=== PATIENT | female | born 1955 | race Caucasian/White ===

== ENCOUNTER 2016-06-27 17:55 | Emergency (ER) | payer BC, OTHER ==
[2016-06-27] MEDS ORDERED: ONDANSETRON 4 MG/2 ML VIAL IVP ONE ×2 (18:16→21:01)
[2016-06-27] MEDS ORDERED: MORPHINE SULFATE 4 MG/1 ML IVP ONE (18:16)
[2016-06-27] MEDS ORDERED: Sodium Chloride 0.9% 1,000 ML PRIMARY IV ONE ×3 (18:16→20:00)
--- NOTE | 2016-06-27 18:22 | PDOC ---
Abdomen/Flank HPI - General Chief Complaint: Abdomen Pain Stated Complaint: SEVERE BILATERAL LOWER ABDOMINAL CRAMPING TODAY Date Seen by Provider: 06/27/16 Time Seen by Provider: 18:00 Source: POSITIVE: Patient, Spouse Exam Limitations: POSITIVE: No limitations Nurse's Notes Reviewed & Considered: Yes - History of Present Illness Initial Comments: Patient comes in today with severe abdominal pain. Patient was hospitalized last week with GI bleed and abdominal pain transfused 3 units of blood discharged to home. She comes in now with increased pain of her abdomen, swelling of her abdomen, nausea, and an increased weakness. She denies any fever or chills sweats. His pain or shortness of breath. Patient is anticoagulated for mechanical valve. Body Location Affected: REPORTS: Abdomen Timing: REPORTS: Abrupt Duration: <24 hours Severity: Severe Quality: REPORTS: "Pain", Sharpness, Stabbing, Throbbing Abdominal Pain Onset Location: REPORTS: RLQ, LLQ, Suprapubic Abdominal Pain Radiation: REPORTS: Periumbilical Context: REPORTS: None Modifying Factors: improves with: Nothing Associated Symptoms: REPORTS: Nausea, Swelling/mass in abdomen, Constipation Recent Care Received: REPORTS: Hospitalized - Patient Home Medications Home Medications: Home Medications Osteo Biflex 1 ea PO BID 11/04/09 Multivitamins W-Minerals/Lut [Centrum Silver Tablet] 1 each PO BID 02/07/12 Aspirin [Aspir 81] 81 mg ORAL QD tab 07/27/13 Ferrous Sulfate 1 tab PO BID #100 tab 11/20/14 Enoxaparin Inj [Lovenox Inj] 100 mg SUBCUT Q12H #7 syringe 06/24/16 Folic Acid [Folvite Tab] 1 mg PO DAILY 06/27/16 Magnesium 30 mg PO DAILY 06/27/16 Pyridoxine HCl [Vitamin B-6] 50 mg PO DAILY 06/27/16 Warfarin Sodium [Coumadin] 6 mg PO DAILY 06/27/16 - Patient Allergies Allergies/Adverse Reactions: Allergies Allergy/AdvReac Type Severity Reaction Status Date / Time phytonadione Allergy Intermediate local skin Verified 06/27/16 18:57 reaction at injection site gluten Allergy Unknown DIARRHEA Verified 06/27/16 18:57 Past Medical History - heen HEENT History: Cataracts Additional HEENT History: cataract right eye, wears glasses Cardiovascular History: Other (please comment) Additional Cardiovasular History: aortic valve replacement 1999, staph infection after that, open heart surgery because of infection pretreated with cefazolin, stroke 2002 and at that time, aspirin added to warfarin therapy. Respiratory History: Denies History Gastrointestinal History: Denies History Genitourinary History: Denies History Endocrine History: Denies History Musculoskeletal History: Arthritis Prosthesis or Implant: No Additional Musculoskeletal History: right knee, difficulty bending knee, loss of cartilage Neurological History: Other (please comment) Additional Neurological History: 2002 right leg weakness when she is very fatigued and weakness in right eye muscles occasionally Blood Disorders: Previous Bld Transfusions Additional Blood Disorders History: after heart cath and open heart surgery Psychiatric History: Denies History History of Sexually Transmitted Diseases: No Cancer History: Denies History History of MDRO: No History of Other Communicable Diseases: No Alcohol Use: Rarely Substance Use Type: None Previous Surgical History: Yes Type / Date of Surgery: appendectomy -age 11, aortic valve replacement-1999, femoral graft and open heart surgery 2000, hysterectomy 2002 Malignant Hyperthermia: No Significant Family History: Cancer, Diabetes Additional Family History: maternal grandmother breast cancer, aunt-lung cancer , maternal and paternal uncle diabetes, and aunt has diabetes ROS - Limitations ROS Limitations: No Limitations Constitution: REPORTS: Chills Cardiovascular: REPORTS: Denies Cardiac Symptoms Respiratory: REPORTS: Shortness Of Breath Neurological: REPORTS: Denies Neuro Symptoms Gastrointestinal: REPORTS: Abdominal Pain, Nausea, Other (Recent GI bleed.) Musculoskeletal: REPORTS: Denies MS Symptoms Genitourinary: REPORTS: Denies Symptoms Eyes: REPORTS: Denies Symptoms ENT: REPORTS: Denies Symptoms Skin: REPORTS: Denies Skin Symptoms Lympathic: REPORTS: Denies Lympathic Symptoms Immunologic: POSITIVE: Denies Symptoms Psychiatric: POSITIVE: Denies Psych Symptoms Abdominal/Flank Pain PE - General Appearance General Appearance: POSITIVE: Alert, Cooperative, No Evidence of Trauma, Anxious - HEENT HEENT: POSITIVE: Head Inspection Nml, Eyes Inspection Nml, Ears Inspection Nml, Nose Inspection Nml, PERRL, EOMI - Neck Neck: POSITIVE: Normal Inspection - Respiratory Respiratory: POSITIVE: No Respiratory Distress, Breath Sounds Normal, Chest Non- Tender - Cardiovascular Cardiovascular: POSITIVE: Heart Sounds Normal, Tachycardia Murmur: Diastolic: Grade 4 (plan systolic click, mechanical) - Chest Chest: POSITIVE: Non Tender - Abdomen Abdomen: Normal Bowel Sounds: (All Quadrants), Tenderness Noted: (All Quadrants) , Palpable Mass Noted: (LLQ), (RLQ), Distention: (LLQ), (RLQ), Guarding: (RLQ), (LLQ) - Skin Skin: POSITIVE: Intact, Warm, Dry, No Rash, Pallor - Extremities Extremity: Non-Tender: (All Extremities), Normal ROM: (All Extremities), Normal Inspection: (All Extremities) - Neurological Neurological: POSITIVE: Affect Apporpriate, Oriented X3 - Psychological Psychiatric: POSITIVE: Anxious Abdomen Progress - Results Reviewed by me Xrays/CTs/US Reviewed by me: Yes Discussed with Radiologist: Yes Lab Results Reviewed: Yes Lab Results:: Laboratory Results 06/27/16 06/27/16 06/27/16 Range/Units 18:34 18:35 20:35 WBC 7.15 6.60 (4.8-10.8) 10^3/uL RBC 3.02 L 2.66 L (4.20-5.40) 10^6/uL Hgb 8.6 L 7.5 L (12.0-16.0) g/dL Hct 28.1 L 24.8 L (37.0-47.0) % MCV 93.0 93.2 (81-99) FL MCH 28.5 28.2 (27-31) PG MCHC 30.6 L 30.2 L (33-37) g/dL RDW Std Deviation 51.4 H 51.8 H (39-50) fL RDW Coeff of Sy 16.6 H 16.5 H (11.5-14.5) % Plt Count 415 H 388 H (140-350) 10*3/uL MPV 8.4 8.3 (7.4-12.2) FL Immature Gran % (Auto) 0.4 (0-5) % Neut % (Auto) 80.1 H (50-80) % Lymph % (Auto) 8.8 L (10-50) % Cole % (Auto) 10.2 (5-15) % Eos % (Auto) 0.4 (0-8) % Baso % (Auto) 0.1 (0-1) % Immature Gran # (Auto) 0.03 10*3/UL Neut # (Auto) 5.72 10*3/UL Lymph # (Auto) 0.63 10*3/uL Cole # (Auto) 0.73 (0.3-0.8) 10*3/UL Eos # (Auto) 0.03 10*3/UL Baso # (Auto) 0.01 10*3/UL WBC Morphology Comment Normal morphology (NORM) Plt Morphology Comment Normal morphology (NORM) RBC Morph Comment Normal morphology (NORM) PT 22.0 H (9.7-11.4) secs INR 2.10 (0.00-5.90) N/A VBG pH 7.45 H (7.32-7.42) VBG pCO2 32 L (45-55) mmHg VBG HCO3 22 (22-26) mmol/L VBG Base Excess -2 (-2-2) MMOL/L Sodium 135 (135-145) meq/L Potassium 4.4 (3.8-5.2) meq/L Chloride 103 (98-112) meq/L Carbon Dioxide 26 (23-33) meq/L Anion Gap 6 (5-20) BUN 14 (7-22) mg/dL Creatinine 0.8 (0.50-1.20) mg/dL Estimated GFR > 60 (>60 ml/min/1.73m(2)) BUN/Creatinine Ratio 17.50 (6-20) Glucose 156 H (78-110) mg/dL Calculated Osmolality 283.0 (267-292) mOsm/kg Lactic Acid 1.9 (0.70-2.10) MMOL/L Calcium 8.6 L (8.7-10.7) mg/dL Magnesium 1.9 (1.6-2.4) mg/dL Total Bilirubin 0.7 (0.3-1.2) mg/dL AST 103 H (8-39) IU/L ALT 89 H D (9-52) IU/L Alkaline Phosphatase 60 (38-126) IU/L Total Protein 5.9 L (6.1-8.0) g/dL Albumin 3.4 L (3.5-4.8) g/dL Globulin 2.5 (2.50-4.10) g/dL Albumin/Globulin Ratio 1.30 (1.3-2.0) mg/g Blood Type A POSITIVE Antibody Screen Positive Antibody Identification Anti-E - Patient's Progress Pain Medication Addressed: POSITIVE: Yes Status: POSITIVE: Unchanged MDM / ED Course: Patient was brought into the emergency department examined, IV started, blood drawn and sent to lab for studies, CT scan of her abdomen and pelvis were obtained. Patient received pain medication IV, Zofran, normal saline 1-1/[address] finding showed bleeding into the extra abdominal and the rectus sheath of the left side. CBC showed hemoglobin low at 8.6 with a hematocrit of 41 platelets were elevated at 415 lactate was normal at 1.9 PTT showed blood gas of 7.45 with a PCO2 of 32 base excess is negative 2. INR is 2, Repeat CBC shows Hgb is now 7.5 ER course: Patient's blood pressure dropped to systolic of 65 and improved with 1-1/2 L of normal saline into the upper 90s. The patient is antibody E for blood and precludes transfusion with the blood i have available given that she has improved hemodynamically into the upper 90s systolic. I was able to contact [facility] [place] however the ICU is unavailable, I then contacted [facility] and talked with Dr. De La Torre who has graciously accepted this patient for transfer. Assessment: Rectus sheath bleed in an anticoagulated patient. - Consult Consult (If Yes, Name of Consulting MD & Time Called): Yes (Dr. De La Torre, [facility] [place]) Consulting MD will see pt:: POSITIVE: Recommended Transfer Counseled: POSITIVE: Patient, Family, RE: Lab Results, RE: Radiology Results, RE : DX Patient Care Time - Estimated PCT Patient Care Time (In Minutes): 75 Vital Signs - Recent Vital Signs Vital Signs: Vital Signs (Last 8 hours) Temp Pulse Resp BP Pulse Ox 06/27/16 17:55 97.5 F 101 H 17 94/53 99 - VS Reviewed Vital Signs Reviewed: Yes Discharge Clinical Impression: Rectus sheath hematoma Discharge Disposition: Transferred to Tertiary Care Facility Condition: Fair Follow Up With: TERESO KWON [Primary Care Provider] - Date Decision to Transfer to Another Facility: 06/27/16 Time Decision to Transfer to Another Facility: 19:30
[2016-06-27 18:38] LABS: BASOPHILS # (AUTO) 0.01 10*3/UL; BASOPHILS % (AUTO) 0.1 % (0-1); EOSINOPHILS % (AUTO) 0.4 % (0-8); HEMATOCRIT 28.1 % (37.0-47.0); HEMOGLOBIN 8.6 g/dL (12.0-16.0); IMM GRAN % (AUTO) 0.4 % (0-5); IMM GRAN# (AUTO) 0.03 10*3/UL; LYMPHOCYTES # (AUTO) 0.63 10*3/uL; LYMPHOCYTES % (AUTO) 8.8 % (10-50); MEAN CORPUSCULAR HEMOGLOBIN 28.5 PG (27-31); MEAN CORPUSCULAR HGB CONC 30.6 g/dL (33-37); MEAN PLATELET VOLUME 8.4 FL (7.4-12.2); MONOCYTES # (AUTO) 0.73 10*3/UL (0.3-0.8); MONOCYTES % (AUTO) 10.2 % (5-15); NEUTROPHILS # (AUTO) 5.72 10*3/UL; NEUTROPHILS % (AUTO) 80.1 % (50-80); RDW COEFFICIENT OF VARIATION 16.6 % (11.5-14.5); RED BLOOD COUNT 3.02 10^6/uL (4.20-5.40); WHITE BLOOD COUNT 7.15 10^3/uL (4.8-10.8)
[2016-06-27 18:40] LABS: PLATELET MORPHOLOGY COMMENT NORMAL MORPHOLOGY (NORM)
[2016-06-27 18:46] LABS: ASPARTATE AMINO TRANSFERASE 103 IU/L (8-39); BILIRUBIN,TOTAL 0.7 mg/dL (0.3-1.2); BLOOD UREA NITROGEN 14 mg/dL (7-22); CALCIUM 8.6 mg/dL (8.7-10.7); CHLORIDE 103 meq/L (98-112); CREATININE 0.8 mg/dL (0.50-1.20); EST GLOMERULAR FILTRATION > 60 (>60 ml/min/1.73m(2)); GLUCOSE 156 mg/dL (78-110); LACTATE 1.9 MMOL/L (0.70-2.10); MAGNESIUM 1.9 mg/dL (1.6-2.4); POTASSIUM 4.4 meq/L (3.8-5.2); SODIUM 135 meq/L (135-145); TOTAL PROTEIN 5.9 g/dL (6.1-8.0)
--- NOTE | 2016-06-27 19:49 | DI ---
HISTORY: Abdominal pain and decreased blood pressure. COMPARISON: 06/22/2016. TECHNIQUE: Multiple helically acquired CT images were obtained through the abdomen and pelvis follow ing the administration of 95 cc of Isovue 300. FINDINGS: Examination demonstrates multiple stable cystic areas within the left lobe of the liver. The lung bases are clear. There is a large extraperitoneal hemorrhage which appears to be arising from the left rectus abdomini s muscle. This displaces the urinary bladder posterior, which is decompressed by a Thompson catheter. The fluid collection measures 13 x 9 cm in cross-sectional diameter. There is subcutaneous fat stranding and air are consistent with subcutaneous injections. There is some fat stranding within the deep pelvis. Skeletal structures are unremarkable. Patient is status post cholecystectomy. The spleen, pancreas, adrenals and kidneys are unremarkable. A few peripheral vascular calcifications are seen. There are stable degenerative changes of the abdomen and pelvis. There is stable levoscoliosis of the lumbar spine. IMPRESSION: 1. New large 13 x 9 cm extraperitoneal hematoma displacing the urinary bladder. This appears to be ar ising from the left rectus abdominous muscle. This is most commonly seen in an anticoagulated patien t with a spontaneous hemorrhage. Correlate clinically.
[2016-06-27] MEDS ORDERED: MORPHINE SULFATE 2 MG/1 ML IVP ONE ×2 (19:58→20:15)
[2016-06-27] MEDS ORDERED: MORPHINE SULFATE 2 MG/1 ML ONE (20:04)
[2016-06-27 20:47] LABS: HEMATOCRIT 24.8 % (37.0-47.0); HEMOGLOBIN 7.5 g/dL (12.0-16.0); MEAN CORPUSCULAR HEMOGLOBIN 28.2 PG (27-31); MEAN CORPUSCULAR HGB CONC 30.2 g/dL (33-37); MEAN PLATELET VOLUME 8.3 FL (7.4-12.2); RDW COEFFICIENT OF VARIATION 16.5 % (11.5-14.5); RED BLOOD COUNT 2.66 10^6/uL (4.20-5.40); WHITE BLOOD COUNT 6.6 10^3/uL (4.8-10.8)
[2016-06-28 02:46] VITALS: RESP 20; TEMP 98.1
== END 2016-06-27 21:20 ==
LOC: ER 17:55
DX: S36.62XA Contusion of rectum, initial encounter (principal); R10.31 Right lower quadrant pain; R11.0 Nausea; R53.1 Weakness; R06.02 Shortness of breath; Z95.4 Presence of other heart-valve replacement; Z79.01 Long term (current) use of anticoagulants
CPT/HCPCS: 36415; 74177; 80053; 82803; 83605; 83735; 85025; 85027; 85610; 86850; 86870; 86900; 86901; 86922; 96361; 96374; 96375; 96376; 99283; J2270; J2405; J7030

== ENCOUNTER → 2016-07-12 | Outpatient (CLI) | payer BC, OTHER ==
[2016-07-12 15:52] LABS: BASOPHILS # (AUTO) 0.03 10*3/UL; BASOPHILS % (AUTO) 0.5 % (0-1); HEMATOCRIT 33.4 % (37.0-47.0); HEMOGLOBIN 10.3 g/dL (12.0-16.0); IMM GRAN % (AUTO) 0.7 % (0-5); IMM GRAN# (AUTO) 0.04 10*3/UL; LYMPHOCYTES # (AUTO) 0.72 10*3/uL; MEAN CORPUSCULAR HEMOGLOBIN 29.5 PG (27-31); MEAN CORPUSCULAR HGB CONC 30.8 g/dL (33-37); MEAN PLATELET VOLUME 8.3 FL (7.4-12.2); MONOCYTES # (AUTO) 0.75 10*3/UL (0.3-0.8); MONOCYTES % (AUTO) 12.5 % (5-15); NEUTROPHILS # (AUTO) 4.35 10*3/UL; NEUTROPHILS % (AUTO) 72.3 % (50-80); RDW COEFFICIENT OF VARIATION 15.9 % (11.5-14.5); RED BLOOD COUNT 3.49 10^6/uL (4.20-5.40); WHITE BLOOD COUNT 6.01 10^3/uL (4.8-10.8)
[2016-07-12 16:00] LABS: PLATELET MORPHOLOGY COMMENT NORMAL MORPHOLOGY (NORM)
[2016-07-12 16:26] LABS: PROTHROMBIN TIME 28.8 secs (9.7-11.4)
== END ==
LOC: MOB LAB 15:26
DX: I35.0 Nonrheumatic aortic (valve) stenosis (principal); D62 Acute posthemorrhagic anemia
CPT/HCPCS: 36415; 85025; 85610

== ENCOUNTER → 2016-07-15 | Outpatient (CLI) | payer BC, OTHER ==
[2016-07-15 09:09] LABS: BASOPHILS # (AUTO) 0.03 10*3/UL; BASOPHILS % (AUTO) 0.6 % (0-1); EOSINOPHILS % (AUTO) 1.4 % (0-8); HEMATOCRIT 34.6 % (37.0-47.0); HEMOGLOBIN 10.5 g/dL (12.0-16.0); IMM GRAN % (AUTO) 0.2 % (0-5); IMM GRAN# (AUTO) 0.01 10*3/UL; LYMPHOCYTES # (AUTO) 0.58 10*3/uL; MEAN CORPUSCULAR HEMOGLOBIN 29.1 PG (27-31); MEAN CORPUSCULAR HGB CONC 30.3 g/dL (33-37); MEAN PLATELET VOLUME 7.9 FL (7.4-12.2); MONOCYTES # (AUTO) 0.68 10*3/UL (0.3-0.8); NEUTROPHILS # (AUTO) 3.48 10*3/UL; NEUTROPHILS % (AUTO) 71.8 % (50-80); RDW COEFFICIENT OF VARIATION 15.7 % (11.5-14.5); RED BLOOD COUNT 3.61 10^6/uL (4.20-5.40); WHITE BLOOD COUNT 4.85 10^3/uL (4.8-10.8)
[2016-07-15 09:12] LABS: PLATELET MORPHOLOGY COMMENT NORMAL MORPHOLOGY (NORM)
[2016-07-15 09:19] LABS: PROTHROMBIN TIME 34.1 secs (9.7-11.4)
[2016-07-15 09:28] LABS: BUN/CREATININE RATIO 13.63 (6-20); CALCIUM 9.8 mg/dL (8.7-10.7); CREATININE 1.1 mg/dL (0.50-1.20); POTASSIUM 4.5 meq/L (3.8-5.2)
== END ==
LOC: LAB 08:50
DX: I35.0 Nonrheumatic aortic (valve) stenosis (principal); D62 Acute posthemorrhagic anemia; N17.9 Acute kidney failure, unspecified
CPT/HCPCS: 36415; 80048; 85025; 85610

== ENCOUNTER → 2016-07-22 | Outpatient (CLI) | payer BC, OTHER ==
[2016-07-22 09:00] LABS: BASOPHILS # (AUTO) 0.02 10*3/UL; BASOPHILS % (AUTO) 0.5 % (0-1); EOSINOPHILS % (AUTO) 2.5 % (0-8); HEMATOCRIT 34.8 % (37.0-47.0); HEMOGLOBIN 10.7 g/dL (12.0-16.0); IMM GRAN % (AUTO) 0.2 % (0-5); IMM GRAN# (AUTO) 0.01 10*3/UL; LYMPHOCYTES # (AUTO) 0.68 10*3/uL; LYMPHOCYTES % (AUTO) 15.6 % (10-50); MEAN CORPUSCULAR HEMOGLOBIN 29.3 PG (27-31); MEAN CORPUSCULAR HGB CONC 30.7 g/dL (33-37); MEAN PLATELET VOLUME 8.4 FL (7.4-12.2); MONOCYTES % (AUTO) 13.8 % (5-15); NEUTROPHILS # (AUTO) 2.93 10*3/UL; NEUTROPHILS % (AUTO) 67.4 % (50-80); RDW COEFFICIENT OF VARIATION 15.2 % (11.5-14.5); RED BLOOD COUNT 3.65 10^6/uL (4.20-5.40); WHITE BLOOD COUNT 4.35 10^3/uL (4.8-10.8)
[2016-07-22 09:01] LABS: PLATELET MORPHOLOGY COMMENT NORMAL MORPHOLOGY (NORM)
[2016-07-22 09:28] LABS: PROTHROMBIN TIME 39.9 secs (9.7-11.4)
[2016-07-22 10:32] LABS: BILIRUBIN,URINE MODERATE (NEG); CLARITY,URINE CLOUDY (CLEAR); GLUCOSE, URINE (UA) NEGATIVE (NEG); LEUKOCYTE ESTERASE ,URINE NEGATIVE (NEG); NITRATE,URINE NEGATIVE (NEG); OCCULT BLOOD,URINE LARGE (NEG); PH,URINE 7.5 (5.0-8.5); PROTEIN,URINE >300 mg/dl (NEG)
[2016-07-22 10:41] LABS: URINE SAMPLE TYPE VOIDED SPECIMEN
[2016-07-22 10:42] LABS: BACTERIA,URINE FEW; RBC,URINE >100 /hpf; SQUAMOUS EPITHELIAL CELL,UR FEW; WBC,URINE 60-80
== END ==
LOC: MOB LAB 08:38
DX: R31.0 Gross hematuria (principal); R30.0 Dysuria; Z79.01 Long term (current) use of anticoagulants
CPT/HCPCS: 81001; 85025; 85610; 87077; 87088; 87186

== ENCOUNTER → 2016-07-26 | Outpatient (CLI) | payer BC, OTHER ==
[2016-07-26 11:35] LABS: BLOOD UREA NITROGEN 12 mg/dL (7-22); BUN/CREATININE RATIO 13.33 (6-20); CALCIUM 9.3 mg/dL (8.7-10.7); CHLORIDE 101 meq/L (98-112); CREATININE 0.9 mg/dL (0.50-1.20); EST GLOMERULAR FILTRATION > 60 (>60 ml/min/1.73m(2)); GLUCOSE 90 mg/dL (78-110); POTASSIUM 4.2 meq/L (3.8-5.2); SODIUM 139 meq/L (135-145)
[2016-07-26 11:36] LABS: PROTHROMBIN TIME 26.7 secs (9.7-11.4)
== END ==
LOC: LAB 10:56
DX: N17.9 Acute kidney failure, unspecified (principal); Z95.2 Presence of prosthetic heart valve
CPT/HCPCS: 36415; 80048; 85610

== ENCOUNTER → 2016-08-09 | Outpatient (CLI) | payer BC, OTHER ==
[2016-08-09 09:16] LABS: PROTHROMBIN TIME 27.1 secs (9.7-11.4)
== END ==
LOC: LAB 08:33
DX: Z95.2 Presence of prosthetic heart valve (principal); Z79.01 Long term (current) use of anticoagulants
CPT/HCPCS: 36415; 85610

== ENCOUNTER → 2016-08-13 | Outpatient (CLI) | payer BC, OTHER ==
[2016-08-13 08:22] LABS: PROTHROMBIN TIME 40.9 secs (9.7-11.4)
== END ==
LOC: LAB 08:01
DX: Z95.2 Presence of prosthetic heart valve (principal); Z79.01 Long term (current) use of anticoagulants
CPT/HCPCS: 36415; 85610

== ENCOUNTER → 2016-08-20 | Outpatient (CLI) | payer BC, OTHER ==
[2016-08-20 13:48] LABS: PROTHROMBIN TIME 20.2 secs (9.7-11.4)
== END ==
LOC: LAB 13:07
DX: Z95.2 Presence of prosthetic heart valve (principal); Z79.01 Long term (current) use of anticoagulants
CPT/HCPCS: 36415; 85610

== ENCOUNTER → 2016-08-27 | Outpatient (CLI) | payer BC, OTHER ==
[2016-08-27 13:12] LABS: PROTHROMBIN TIME 40.3 secs (9.7-11.4)
== END ==
LOC: LAB 12:41
DX: R31.0 Gross hematuria (principal); Z79.01 Long term (current) use of anticoagulants; Z95.2 Presence of prosthetic heart valve
CPT/HCPCS: 36415; 85610

== ENCOUNTER → 2016-09-03 | Outpatient (CLI) | payer BC, OTHER ==
[2016-09-03 09:43] LABS: PROTHROMBIN TIME 24.4 secs (9.7-11.4)
== END ==
LOC: LAB 09:09
DX: Z95.2 Presence of prosthetic heart valve (principal); Z79.01 Long term (current) use of anticoagulants
CPT/HCPCS: 36415; 85610

== ENCOUNTER → 2016-09-13 | Outpatient (CLI) | payer BC, OTHER | LOC: LAB 15:22 | DX: D62 Acute posthemorrhagic anemia (principal); Z95.2 Presence of prosthetic heart valve; Z79.01 Long term (current) use of anticoagulants | CPT/HCPCS: 36415; 85018; 85610 ==

== ENCOUNTER → 2016-09-27 | Outpatient (CLI) | payer BC, OTHER ==
[2016-09-27 11:55] LABS: BLOOD UREA NITROGEN 14 mg/dL (7-22); CALCIUM 9.4 mg/dL (8.7-10.7); EST GLOMERULAR FILTRATION > 60 (>60 ml/min/1.73m(2))
[2016-09-27 12:02] LABS: BASOPHILS # (AUTO) 0.02 10*3/UL; BASOPHILS % (AUTO) 0.4 % (0-1); EOSINOPHILS # (AUTO) 0.14 10*3/UL; EOSINOPHILS % (AUTO) 2.7 % (0-8); HEMATOCRIT 41.4 % (37.0-47.0); HEMOGLOBIN 13.2 g/dL (12.0-16.0); LYMPHOCYTES # (AUTO) 0.97 10*3/uL; MEAN CORPUSCULAR HEMOGLOBIN 29.1 PG (27-31); MEAN CORPUSCULAR HGB CONC 31.9 g/dL (33-37); MEAN CORPUSCULAR VOLUME 91.2 FL (81-99); MEAN PLATELET VOLUME 8.6 FL (7.4-12.2); MONOCYTES # (AUTO) 0.61 10*3/UL (0.3-0.8); MONOCYTES % (AUTO) 11.8 % (5-15); NEUTROPHILS # (AUTO) 3.41 10*3/UL; NEUTROPHILS % (AUTO) 66.1 % (50-80); RED BLOOD COUNT 4.54 10^6/uL (4.20-5.40)
[2016-09-27 12:21] LABS: PLATELET MORPHOLOGY COMMENT NORMAL MORPHOLOGY (NORM); RBC MORPHOLOGY COMMENT NORMAL MORPHOLOGY (NORM); WBC MORPHOLOGY COMMENT NORMAL MORPHOLOGY (NORM)
== END ==
LOC: LAB 11:16
DX: D62 Acute posthemorrhagic anemia (principal); I35.0 Nonrheumatic aortic (valve) stenosis; N17.9 Acute kidney failure, unspecified; Z95.2 Presence of prosthetic heart valve
CPT/HCPCS: 36415; 80048; 85025; 85610

== ENCOUNTER → 2016-10-11 | Outpatient (CLI) | payer BC, OTHER | LOC: LAB 10:32 | DX: Z95.2 Presence of prosthetic heart valve (principal); Z79.01 Long term (current) use of anticoagulants | CPT/HCPCS: 36415; 85610 ==

== ENCOUNTER → 2016-10-25 | Outpatient (CLI) | payer BC, OTHER | LOC: LAB 10:03 | DX: Z95.2 Presence of prosthetic heart valve (principal); Z79.01 Long term (current) use of anticoagulants | CPT/HCPCS: 36415; 85610 ==

== ENCOUNTER → 2016-11-01 | Outpatient (CLI) | payer BC, OTHER | LOC: LAB 10:08 | DX: Z95.2 Presence of prosthetic heart valve (principal); Z79.01 Long term (current) use of anticoagulants | CPT/HCPCS: 36415; 85610 ==

== ENCOUNTER → 2016-11-15 | Outpatient (CLI) | payer BC, OTHER | LOC: LAB 10:31 | DX: Z95.2 Presence of prosthetic heart valve (principal); Z79.01 Long term (current) use of anticoagulants | CPT/HCPCS: 36415; 85610 ==

== ENCOUNTER → 2016-11-23 | Outpatient (CLI) | payer BC, OTHER | LOC: LAB 07:47 | DX: Z95.2 Presence of prosthetic heart valve (principal); Z79.01 Long term (current) use of anticoagulants | CPT/HCPCS: 36415; 85610 ==

== ENCOUNTER → 2016-11-23 | Outpatient (CLI) | payer BC, OTHER ==
--- NOTE | 2016-11-23 09:23 | DI ---
HISTORY: Gross hematuria. COMPARISON: None available. TECHNIQUE: Sonographic images were obtained through the renal retroperitoneum and submitted for inte rpretation. FINDINGS: No hydronephrosis. Mild renal cortical thinning. No renal stones identified. The ureter al jets were not visualized in the bladder. There is a nonspecific hypoechoic region superior to the urinary bladder. IMPRESSION: 1. No hydronephrosis. Mild renal cortical thinning. 2. Nonspecific hypoechoic region superior to the urinary bladder. CT with/without iv contrast can be obtained for further evaluation. NOTE: The interpreting Radiologist was not present at the time of ultrasound interrogation.
== END ==
LOC: US 07:43
PROVIDERS: ATTEND Urology
DX: R31.0 Gross hematuria (principal)
CPT/HCPCS: 76770

== ENCOUNTER → 2016-12-13 | Outpatient (CLI) | payer BC, OTHER ==
[2016-12-13 08:19] LABS: BLOOD UREA NITROGEN 22 mg/dL (7-22); BUN/CREATININE RATIO 24.44 (6-20); CALCIUM 9.2 mg/dL (8.7-10.7); EST GLOMERULAR FILTRATION > 60 (>60 ml/min/1.73m(2))
[2016-12-13 08:53] LABS: VITAMIN D 25-HYDROXY 51.1 NG/ML (30-100)
== END ==
LOC: LAB 07:47
DX: E55.9 Vitamin D deficiency, unspecified (principal); M81.0 Age-related osteoporosis without current pathological fracture; R73.9 Hyperglycemia, unspecified; S37.009S Unspecified injury of unspecified kidney, sequela; Z95.2 Presence of prosthetic heart valve; Z79.01 Long term (current) use of anticoagulants
CPT/HCPCS: 36415; 80048; 82306; 84443; 85610

== ENCOUNTER → 2016-12-24 | Outpatient (CLI) | payer BC, OTHER | LOC: LAB 15:56 | DX: Z95.2 Presence of prosthetic heart valve (principal); Z79.01 Long term (current) use of anticoagulants | CPT/HCPCS: 36415; 85610 ==

== ENCOUNTER → 2017-01-17 | Outpatient (CLI) | payer OTHER | LOC: LAB 12:18 | DX: Z95.2 Presence of prosthetic heart valve (principal); Z79.01 Long term (current) use of anticoagulants | CPT/HCPCS: 36415; 85610 ==

== ENCOUNTER → 2017-02-07 | Outpatient (CLI) | payer OTHER | LOC: LAB 10:46 | DX: Z95.2 Presence of prosthetic heart valve (principal); Z79.01 Long term (current) use of anticoagulants | CPT/HCPCS: 36415; 85610 ==

== ENCOUNTER 2018-09-12 09:32 | Observation (INO) ==
[2018-09-12] MEDS ORDERED: Sodium Chloride 0.9% 1,000 ML PRIMARY IV ONE (09:51)
[2018-09-12] MEDS ORDERED: ONDANSETRON 4 MG/2 ML VIAL IVP ONE (09:51)
--- NOTE | 2018-09-12 10:05 | PDOC ---
General Adult HPI - General Chief Complaint: General Medical Stated Complaint: NAUSEA/VOMITING/COUGHING Date Seen by Provider: 09/12/18 Time Seen by Provider: 09:40 Source: POSITIVE: Patient Exam Limitations: POSITIVE: No limitations Nurse's Notes Reviewed & Considered: Yes - History of Present Illness Initial Comment: The patient is a 62-year-old female who returns to the emergency department with complaints of continued dry heaves and vomiting. She now has worsening cough as well. The patient was seen here in the emergency department on Tuesday morning with complaints primarily of nausea and vomiting. She was significantly dehydrated at that time and received a couple liters of fluid and anti-medics after which she was feeling better. Her blood work at that essentially unremarkable with the exception of her INR being elevated at 5.2. She had been started on doxycycline several days prior to that for a sinus infection. She was discharged home and her antibiotic was changed to Keflex to hopefully decrease the interaction with the warfarin. She was also discharged home with [facility]. She states that yesterday she was feeling better and she actually went outside for a little bit. She was able to eat some yesterday and had no vomiting. Last night however she had increased nausea and vomiting primarily after coughing. She feels like there is mucus in the back of her throat that is gagging her. She states that she feels like she is getting dehydrated again this morning. She continues to have a low-grade headache. She denies nausea or weakness in her arms or legs. She denies any chest pain or abdominal pain. She does report some increase shortness of breath. She did try taking an albuterol inhaler at home which seemed to help a little bit. She reports that female over the weekend she was having diarrhea however over the past couple of days she has not had any further diarrhea. Her stools have been loose and yellow in color. She has not taken any Coumadin for the past 4 days, a secondary to vomiting and then she held her Coumadin because of the elevation. She checked her INR on her home machine this morning and it registered greater than 8. Have you received a tetanus shot in the past 10 years?: Yes - Patient Home Medications Home Medications: Home Medications Osteo Biflex 1 ea PO BID 11/04/09 Multivitamins W-Minerals/Lut [Centrum Silver Tablet] 1 ea PO BID 02/07/12 Folic Acid [Folvite Tab] 1 mg PO DAILY 06/27/16 Pyridoxine HCl [Vitamin B-6] 1 tab PO QD #30 06/27/16 aluminum hydrox-magnesium carb 95 mg-358 mg/15 mL oral suspension 15 ml PO TID- QID PRN 06/13/17 ferrous gluconate 324 mg (38 mg iron) tablet 324 mg PO BID #180 tab 06/13/17 loperamide 2 mg capsule 2 mg PO Q2-4H PRN 06/13/17 potassium citrate ER 10 mEq (1,080 mg) tablet,extended release 10 meq PO QDAY PRN #90 tab 06/13/17 ranitidine 150 mg tablet 150 mg PO BID tab 03/31/18 clobetasol 0.05 % topical ointment 1 applic TOPICAL QHS #15 g 04/12/18 calcium carbonate-vitamin D3 600 mg (1,500 mg)-400 unit capsule 600 mg PO BID cap 07/18/18 lactobacillus combination no.8 3 billion cell capsule 3,000 mmu cells PO BID cap 07/18/18 magnesium 30 mg tablet 400 mg PO DAILY PRN tab 07/18/18 estradiol 10 mcg vaginal tablet 10 mcg VAGINAL 2XW #24 tab 07/20/18 furosemide 20 mg tablet 20 mg PO QDAY PRN #90 tab 07/20/18 lisinopril 5 mg tablet 5 mg PO QDAY #90 tab 07/20/18 oxybutynin chloride ER 10 mg tablet,extended release 24 hr 10 mg PO QDAY #90 tab 07/20/18 sertraline 100 mg tablet 100 mg PO QDAY #90 tab 07/20/18 warfarin 4 mg tablet 6 mg PO see directions #135 tab 07/20/18 fluticasone 50 mcg/actuation nasal spray,suspension See Rx Instructions .ROUTE .COMPLEX #16 gram 08/06/18 codeine 10 mg-guaifenesin 100 mg/5 mL oral liquid 10 ml PO Q4-6H PRN #500 ml 09/07/18 doxycycline hyclate 100 mg tablet 100 mg PO BID #14 tab 09/07/18 Cephalexin [Keflex] 500 mg PO TID #21 cap 09/10/18 Ondansetron Odt [Zofran Odt] 8 mg PO Q6H PRN #10 tab.rapdis 09/10/18 - Patient Allergies Allergies/Adverse Reactions: Allergies Allergy/AdvReac Type Severity Reaction Status Date / Time phytonadione (vitamin K1) Allergy Intermediate local skin Verified 09/12/18 10:49 reaction at injection site gluten Allergy Unknown DIARRHEA Verified 09/12/18 10:49 Past Medical History - heen HEENT History: Cataracts Additional HEENT History: cataract right eye, wears glasses Cardiovascular History: Other (please comment) Additional Cardiovasular History: aortic valve replacement 1999, staph infection after that, open heart surgery because of infection pretreated with cefazolin, stroke 2002 and at that time, aspirin added to warfarin therapy. Respiratory History: Denies History Gastrointestinal History: Denies History Genitourinary History: Denies History Endocrine History: Denies History Musculoskeletal History: Arthritis Prosthesis or Implant: No Additional Musculoskeletal History: right knee, difficulty bending knee, loss of cartilage Neurological History: Other (please comment) Additional Neurological History: 2002 right leg weakness when she is very fatigued and weakness in right eye muscles occasionally Blood Disorders: Previous Bld Transfusions Additional Blood Disorders History: after heart cath and open heart surgery Psychiatric History: Denies History History of Sexually Transmitted Diseases: No Cancer History: Denies History In Past Year Been Physically Harmed or Verbally Threatened: No History of MDRO: No Other Type of MDRO: STAPH IN CHEST WOUND AND HEART CATH INTRODUCTION SITE (GROIN) History of Other Communicable Diseases: No Tobacco Use: Former Smoker Alcohol Use: Rarely In the Past 12 Months, Have Used or Abuse Any Substance: None Previous Surgical History: Yes Type / Date of Surgery: appendectomy -age 11, aortic valve replacement-1999, femoral graft and open heart surgery 2000, hysterectomy 2002 Malignant Hyperthermia: No Significant Family History: Cancer, Diabetes Additional Family History: maternal grandmother breast cancer, aunt-lung cancer, maternal and paternal uncle diabetes, and aunt has diabetes Past Medical History Reviewed: Reviewed - No Changes ROS - Limitations ROS Limitations: No Limitations Constitution: REPORTS: Chills. DENIES: Fever Cardiovascular: DENIES: Chest Pain, Heart Palpitations, Edema Respiratory: REPORTS: Cough Non Productive, Cough Productive, Shortness Of Breath. DENIES: Hurts To Breathe Neurological: REPORTS: Headache, Dizziness. DENIES: Confusion, Numbness, Seizure Activity, Weakness Gastrointestinal: REPORTS: Nausea, Vomitting (The vomiting at this point appears to be primarily posttussive). DENIES: Abdominal Pain Endocrine: REPORTS: Fatigue Musculoskeletal: REPORTS: Denies MS Symptoms Genitourinary: REPORTS: Denies Symptoms Eyes: REPORTS: Vision Changes (Some blurred vision) ENT: REPORTS: Congestion, Nasal Drainage, Sore Throat Skin: DENIES: Rash General Adult Exam - General Appearance General Appearance: POSITIVE: Alert, Cooperative, No Acute Distress - HEENT HEENT: POSITIVE: Head Inspection Nml, Eyes Inspection Nml, Ears Inspection Nml, Nose Inspection Nml, Pharynx Inspect. Nml, PERRL, EOMI, Dry Mucous Membranes - Neck Neck: POSITIVE: Normal Inspection. NEGATIVE: Lymphadenopathy - Respiratory Respiratory: POSITIVE: No Respiratory Distress, Breath Sounds Normal - Cardiovascular Cardiovascular: POSITIVE: Regular Rate & Rhythm, No Murmur Peripheral Pulses: Dorsalis-pedis (R): 2+, Dorsalis-pedis (L): 2+ - Abdomen Abdomen: Soft: (All Quadrants), Denies Tenderness: (All Quadrants), No Distention: (All Quadrants) - Back Back: POSITIVE: Normal Inspection - Skin Skin: POSITIVE: Normal Color, No Rash - Extremities Extremity: Normal ROM: (All Extremities), Normal Inspection: (All Extremities) - Neurological / Psychological Neurological: POSITIVE: Oriented X3, mgmt consultant Normal As Tested, Motor Normal, Sensation Normal General Adult Progress - Results Reviewed by me Xrays/CTs/US Reviewed by me: Yes Discussed with Radiologist: Yes Radiology Findings: Chest x-ray shows no acute infiltrate or any other acute findings per radiologist. Head CT shows no acute intracranial pathology per radiologist. Lab Results Reviewed by Me: Yes Lab Results:: Laboratory Results 09/12/18 09/12/18 09/12/18 09:55 09:55 09:55 WBC 4.03 L RBC 4.85 Hgb 14.6 Hct 43.6 MCV 89.9 MCH 30.1 MCHC 33.5 RDW Std Deviation 43.9 RDW Coeff of Sy 13.7 Plt Count 244 MPV 8.8 Immature Gran % (Auto) 0.2 Neut % (Auto) 64.1 Lymph % (Auto) 21.1 [place] % (Auto) 13.9 Eos % (Auto) 0.5 Baso % (Auto) 0.2 Immature Gran # (Auto) 0.01 Neut # (Auto) 2.58 Lymph # (Auto) 0.85 [place] # (Auto) 0.56 Eos # (Auto) 0.02 Baso # (Auto) 0.01 WBC Morphology Comment Normal morphology Plt Morphology Comment Normal morphology RBC Morph Comment Normal morphology PT 87.0 H INR 10.12 H* D VBG pH VBG pCO2 VBG HCO3 VBG Base Excess Sodium 137 Potassium 4.0 Chloride 102 Carbon Dioxide 26 Anion Gap 9 BUN 11 Creatinine 0.8 Estimated GFR > 60 BUN/Creatinine Ratio 13.75 Glucose 105 Calculated Osmolality 282.0 Lactic Acid Calcium 9.8 Magnesium 1.6 Total Bilirubin 0.8 D AST 124 H ALT 94 H D Alkaline Phosphatase 86 Troponin I C-Reactive Protein 0.7 NT-Pro-B Natriuret Pep 542 H Total Protein 7.9 Albumin 4.8 Globulin 3.1 Albumin/Globulin Ratio 1.50 09/12/18 09/12/18 09/12/18 09:55 09:55 10:05 WBC RBC Hgb Hct MCV MCH MCHC RDW Std Deviation RDW Coeff of Sy Plt Count MPV Immature Gran % (Auto) Neut % (Auto) Lymph % (Auto) [place] % (Auto) Eos % (Auto) Baso % (Auto) Immature Gran # (Auto) Neut # (Auto) Lymph # (Auto) [place] # (Auto) Eos # (Auto) Baso # (Auto) WBC Morphology Comment Plt Morphology Comment RBC Morph Comment PT INR VBG pH 7.43 H VBG pCO2 40 L VBG HCO3 27 H VBG Base Excess 3 H Sodium Potassium Chloride Carbon Dioxide Anion Gap BUN Creatinine Estimated GFR BUN/Creatinine Ratio Glucose Calculated Osmolality Lactic Acid 1.2 Calcium Magnesium Total Bilirubin AST ALT Alkaline Phosphatase Troponin I < 0.012 C-Reactive Protein NT-Pro-B Natriuret Pep Total Protein Albumin Globulin Albumin/Globulin Ratio CBC and BMP: 09/12/18 09:55 09/12/18 09:55 EKG Interpreted/Reviewed By Me:: Yes EKG Interpretation:: POSITIVE: Normal Sinus Rhythm, Normal Rate, Normal Intervals, Normal QRS, Normal ST/T - Patient's Progress MDM / ED Course: The patient's oxygen saturations remained good on room air. She does appear to be slightly dehydrated. An IV was established and blood cultures and lactate were drawn with initial IV start. Her initial venous blood gas shows a pH of 7.43 with a PCO2 of 40. EKG shows normal sinus rhythm with no acute ST segment or T-wave changes. She was given Zofran 4 mg IV. She was also given a duo neb. The DuoNeb resulted in some subjective improvement however she did quite shaky afterward. Blood work reveals normal blood counts. Her INR is significantly elevated at 10.2. Chest x-ray shows no obvious infiltrate or any other acute findings. Her BNP is mildly elevated at 500. Troponin is normal. Lactate is normal at 1.2. Electrolytes all look good currently. Her transaminases are mildly elevated which has been present previously on old labs. Because of the continued vomiting and dehydration as well as significantly elevated INR decision was made to admit the patient for further monitoring and treatment. I did discuss the patient with Dr. Givens and he is agreed to admit the patient cu rrently. Her influenza test was positive for influenza A. This is likely what started her respiratory symptoms last week. She does not exhibit any signs of active bleeding. She does have a mild headache and because of her elevated INR a CT scan of the head was ordered and showed no evidence of bleeding or any other acute abnormalities per radiologist. - Consult Counseled: POSITIVE: Patient, Family, RE: Lab Results, RE: Radiology Results, RE: DX Patient Care Time - Estimated PCT Patient Care Time (In Minutes): 30 Vital Signs - Recent Vital Signs Vital Signs: Vital Signs (Last 8 hours) Temp Pulse Pulse Resp BP Pulse Ox 09/12/18 10:32 76 16 100 09/12/18 10:31 74 20 100 09/12/18 09:38 97.4 F 83 20 132/98 99 - VS Reviewed Vital Signs Reviewed: Yes Discharge Clinical Impression: Gastroenteritis, Dehydration, Influenza, Elevated INR, S/P AVR Discharge Disposition: Admit to Inpatient Condition: Fair Follow Up With: Behzad Hester [Primary Care Provider] - Date Decision to Admit to Inpatient: 09/12/18 Time Decision to Admit to Inpatient: 10:50
[2018-09-12 10:10] LABS: BASOPHILS # (AUTO) 0.01 10*3/UL; BASOPHILS % (AUTO) 0.2 % (0-1); EOSINOPHILS # (AUTO) 0.02 10*3/UL; EOSINOPHILS % (AUTO) 0.5 % (0-8); Hematocrit [HCT] 43.6 % (37.0-47.0); Hemoglobin [HGB] 14.6 g/dL (12.0-16.0); LYMPHOCYTES # (AUTO) 0.85 10*3/uL; MEAN CORPUSCULAR HEMOGLOBIN 30.1 PG (27-31); MEAN CORPUSCULAR HGB CONC 33.5 g/dL (33-37); MEAN CORPUSCULAR VOLUME 89.9 FL (81-99); MEAN PLATELET VOLUME 8.8 FL (7.4-12.2); MONOCYTES # (AUTO) 0.56 10*3/UL (0.3-0.8); MONOCYTES % (AUTO) 13.9 % (5-15); NEUTROPHILS # (AUTO) 2.58 10*3/UL; NEUTROPHILS % (AUTO) 64.1 % (50-80); RED BLOOD COUNT 4.85 10^6/uL (4.20-5.40)
--- NOTE | 2018-09-12 10:10 | EKG ---
[address] [address] Measurements Intervals [place] Rate: 68 P: 66 RI: 177 QRS: -14 QRSD: 118 T: 3 QT: 443 QTc: 460 Interpretive Statements SINUS RHYTHM MODERATE INTRAVENTRICULAR CONDUCTION DELAY SLOW R WAVE PROGRESSION V1-V3 Compared to ECG 11/04/2012 21:47:42 No significant changes Electronically Signed On 09-12-18 16:55:06 MDT by Roosevelt Neely [id number]
[2018-09-12 10:11] LABS: PLATELET MORPHOLOGY COMMENT NORMAL MORPHOLOGY (NORM); RBC MORPHOLOGY COMMENT NORMAL MORPHOLOGY (NORM); WBC MORPHOLOGY COMMENT NORMAL MORPHOLOGY (NORM)
[2018-09-12] MEDS ORDERED: IPRATROPIUM/ALBUTEROL SULFATE 3 ML NEB NEB ONE (10:21)
[2018-09-12 10:23] LABS: BLOOD UREA NITROGEN 11 mg/dL (7-22); BUN/CREATININE RATIO 13.75 (6-20); SERUM ALBUMIN 4.8 g/dL (3.5-4.8)
[2018-09-12 10:24] LABS: VENOUS PH 7.43 (7.32-7.42)
--- NOTE | 2018-09-12 10:36 | DI ---
XR CXR 1VW,09/12/2018 9:51 AM: Clinical History: Cough and shortness of breath Previous Exam: None at this facility. Findings: A single frontal radiograph of the chest is obtained, and demonstrates clear lungs. The cardiomediast inum is unremarkable. There is dextroscoliosis of the midthoracic spine. There is no infiltrate nor effusion. Impression: Normal chest.
--- NOTE | 2018-09-12 11:18 | DI ---
CT Head WO Contrast,09/12/2018 10:23 AM: Clinical History: Headache and elevated INR. Previous Exam: May 17, 2014 Findings: Multiple helically acquired CT images are obtained through the brain without contrast, and demonstrat e normal, symmetric ventricles and other CSF containing spaces. There is no mass, hemorrhage or midli ne shift. The surrounding soft tissue and osseous structures are unremarkable. The intraorbital struc tures and paranasal sinuses are normal. Impression: No acute intracranial pathology.
[2018-09-12] MEDS ORDERED: GUAIFENESIN/CODEINE SYRUP 100 MG/ 10 MG/ 5 ML UD CUP PO PRN (11:41)
[2018-09-12] MEDS ORDERED: FUROSEMIDE 20 MG TABLET PO PRN (11:41)
[2018-09-12] MEDS ORDERED: CALCIUM CARBONATE 500 MG (TUMS) CHEWABLE TABLET PO PRN (11:41)
[2018-09-12] MEDS ORDERED: LIDOCAINE W/ SODIUM BICARB 0.5 ML SYR SUBD PRN (11:41)
[2018-09-12] MEDS ORDERED: DOCUSATE 100 MG CAPSULE PO PRN (11:41)
[2018-09-12] MEDS ORDERED: Potassium Chloride Tab 10 MEQ TAB PO PRN (11:41)
[2018-09-12] MEDS ORDERED: ONDANSETRON 4 MG/2 ML VIAL IVP PRN (11:41)
[2018-09-12] MEDS: LISINOPRIL 5 MG TABLET PO SCH (12:54)
[2018-09-12] MEDS: Lactated Ringers 1,000 ML PRIMARY IV SCH ×2 (12:55→20:07)
[2018-09-12] MEDS: ACETAMINOPHEN 325 MG TABLET PO PRN (13:37)
[2018-09-12] MEDS ORDERED: CEPHALEXIN 500 MG CAPSULE PO SCH (15:00)
--- NOTE | 2018-09-12 17:19 | PDOC ---
HPI - History of Present Illness History of Present Illness: This very nice 62-year-old female with past medical history of automatic valve replacement [facility] on Coumadin was seen in the ER ER a few days ago with nause a and vomiting and dehydration her INR was 5.2 and was started on Doxy a few days before for her sinus infection was discharged and put on Keflex to decrease the interaction with the warfarin come back to the ER because of a lot of sinus sinus postnasal drip sinus pain nausea vomiting and unable to keep any food down and not been taking Coumadin for the past 4 days and when the INR was checked it was in the 10.8 range Patient was admitted for rehydration and treatment of her sinus infection and viral gastroenteritis Past Medical History Medical History: Celiac disease diagnosed in 2013. Bicuspid aortic valve s/p AVR ([facility]) in 2000. Osteoarthritis. TIA in 2002, the patient does not remember if she was therapeutic or not on her Coumadin at this time. Iron deficiency anemia Surgical History: Appendectomy in childhood. Cholecystectomy and drainage of hepatic cyst in 2012. s/p AVR ([facility]) in 2000. Hysterectomy with BSO in 2002 for fibroids. Right total knee arthroplasty in 2014 Pertinent Family History: Significant for Parkinson's disease, in her father. Mother of unknown causes. Past Social History: Does not smoke, rarely drinks, been to her current since 2000, has 2 children from a prior marriage that are described as grown and healthy. Tobacco Use: Former Smoker In the Past 12 Months, Have Used or Abuse Any of the Following Substance: None Medication / Allergies Home Medications: Home Medications Medication Instructions Recorded Confirmed Type Osteo Biflex 1 ea PO BID 11/04/09 09/12/18 History Multivitamins W-Minerals/Lut 1 ea PO BID 02/07/12 09/12/18 History [Centrum Silver Tablet] Folic Acid [Folvite Tab] 1 mg PO DAILY 06/27/16 09/12/18 History Pyridoxine HCl [Vitamin B-6] 1 tab PO QD #30 06/27/16 09/12/18 History aluminum hydrox-magnesium carb 95 15 ml PO TID-QID PRN 06/13/17 09/12/18 History mg-358 mg/15 mL oral suspension ferrous gluconate 324 mg (38 mg 324 mg PO BID #180 tab 06/13/17 09/12/18 Rx iron) tablet loperamide 2 mg capsule 2 mg PO Q2-4H PRN 06/13/17 09/12/18 History potassium citrate ER 10 mEq (1,080 10 meq PO QDAY PRN #90 tab 06/13/17 09/12/18 Rx mg) tablet,extended release ranitidine 150 mg tablet 150 mg PO BID tab 03/31/18 09/12/18 History clobetasol 0.05 % topical ointment 1 applic TOPICAL QHS #15 g 04/12/18 09/12/18 Rx calcium carbonate-vitamin D3 600 600 mg PO BID cap 07/18/18 09/12/18 History mg (1,500 mg)-400 unit capsule lactobacillus combination no.8 3 3,000 mmu cells PO BID cap 07/18/18 09/12/18 History billion cell capsule magnesium 30 mg tablet 400 mg PO DAILY PRN tab 07/18/18 09/12/18 History estradiol 10 mcg vaginal tablet 10 mcg VAGINAL 2XW #24 tab 07/20/18 09/12/18 Rx furosemide 20 mg tablet 20 mg PO QDAY PRN #90 tab 07/20/18 09/12/18 Rx lisinopril 5 mg tablet 5 mg PO QDAY #90 tab 07/20/18 09/12/18 Rx oxybutynin chloride ER 10 mg 10 mg PO QDAY #90 tab 07/20/18 09/12/18 Rx tablet,extended release 24 hr sertraline 100 mg tablet 100 mg PO QDAY #90 tab 07/20/18 09/12/18 Rx warfarin 4 mg tablet 6 mg PO see directions #135 tab 07/20/18 09/12/18 Rx fluticasone 50 mcg/actuation nasal See Rx Instructions .ROUTE 08/06/18 09/12/18 Rx spray,suspension .COMPLEX #16 gram codeine 10 mg-guaifenesin 100 mg/5 10 ml PO Q4-6H PRN #500 ml 09/07/18 09/12/18 Rx mL oral liquid doxycycline hyclate 100 mg tablet 100 mg PO BID #14 tab 09/07/18 09/12/18 Rx Cephalexin [Keflex] 500 mg PO TID #21 cap 09/10/18 09/12/18 Rx Ondansetron Odt [Zofran Odt] 8 mg PO Q6H PRN #10 tab.rapdis 09/10/18 09/12/18 Rx Allergies/Adverse Reactions: Allergies Allergy/AdvReac Type Severity Reaction Status Date / Time phytonadione (vitamin K1) Allergy Intermediate local skin Verified 09/12/18 10:49 reaction at injection site gluten Allergy Unknown DIARRHEA Verified 09/12/18 10:49 Review of Systems - Review of Systems All Systems: Reviewed & No Additional Complaints Except as Stated - Respiratory Respiratory: DENIES: Negative System Review, Cough, Sputum, Dyspnea At Rest, Dyspnea with Exertion, Pleuritic Pain, Hemoptysis, Wheezing, Other, See HPI - Cardiovascular Cardiovascular: DENIES: Negative System Review, Chest Pain, Edema, Syncope, Palpitations, Orthopnea, Paroxysmal Nocturnal Dyspnea, Other, See HPI - Gastrointestinal Gastrointestinal / Abdominal: REPORTS: Nausea, Vomiting. DENIES: Bloody Stool Exam - Vitals Vital Signs: Vital Signs Temperature 97.6 F Temperature Source Temporal Artery Scan Pulse Rate [Pulse Oximeter] 73 Pulse Rate 83 Respiratory Rate 18 Blood Pressure [Right Arm] 143/90 Blood Pressure [Left Arm] 132/98 Blood Pressure 148/86 Pulse Ox 93 Oxygen Delivery Method Room Air Height 5 ft 3.5 in Weight 198 lb 6 oz - General General Appearance: No Acute Distress, Cooperative - Head Head Exam: Normal Inspection, Normocephalic, Atraumatic - Eye Eye Exam: POSITIVE: Normal Appearance, PERRL, EOMI, No Scleral Icterus - ENT Additonal ENT Exam Details: Both maxillary sinuses hurt severely on mild pressure - Respiratory Respiratory Exam: POSITIVE: Clear to Auscultation - Bilaterally, Breathing Non Labored, Normal To Percussion, Normal to Percussion and Palpation - Cardiovascular Cardiovascular Exam: POSITIVE: RRR, No Murmur, No Clicks, No Gallops, No Rubs, PMI Non-Displaced - GI/Abdominal GI/Abdominal Exam: POSITIVE: Normal Bowel Sounds, Non Tender, Non Distended, Soft, No Masses, No Hepatomegaly, No Splenomegaly, No Organomegaly - Extremities Extremities Exam: POSITIVE: Normal Inspection, Full ROM, Normal Capillary Refill, No Clubbing Present, No Edema Present, No Cyanosis Present, Negative Sophia's sign, Dosalis Pedis Pulses - Stong & Regular Results - Labs CBC and BMP: 09/12/18 09:55 09/12/18 09:55 Assessment and Plan - Patient Problems (1) Sinusitis Current Visit: Yes Status: Acute Comment: I will stop the Keflex start IV Rocephin 2 g considering the amount of pain nausea and vomiting that is causing her and headache. Hydrate patient replace magnesium we will hold off on reversing the INR will let INR drift down since she has a mechanical valve this would be very difficult to bring back up the INR and she would have to be on heparin drip unless there is any signs of bleeding we will hold off on reversing anticoagulation she agrees and under stands Code(s): J32.9 - Chronic sinusitis, unspecified (2) Dehydration Current Visit: Yes Status: Acute Code(s): E86.0 - Dehydration (3) Elevated INR Current Visit: Yes Status: Acute Code(s): R79.1 - Abnormal coagulation profile (4) Gastroenteritis Current Visit: Yes Status: Acute Code(s): K52.9 - Noninfective gastroenteritis and colitis, unspecified
[2018-09-12] MEDS ORDERED: cefTRIAXone Inj 2 GM in Sodium Chloride 0.9% 100 ML IV SCH (17:30)
[2018-09-12] MEDS: FAMOTIDINE 20 MG TABLET PO SCH (19:59)
[2018-09-12] MEDS: FERROUS GLUCONATE 324 MG TABLET PO SCH (19:59)
[2018-09-12] MEDS: OSELTAMIVIR PHOSPHATE 75 MG CAPSULE PO SCH (19:59)
[2018-09-13] MEDS: Lactated Ringers 1,000 ML PRIMARY IV SCH (05:03)
[2018-09-13] MEDS: ACETAMINOPHEN 325 MG TABLET PO PRN (05:11)
[2018-09-13] MEDS ORDERED: MAGNESIUM OXIDE 400 MG TABLET PO SCH (07:00)
[2018-09-13 08:25] VITALS: RESP 16
[2018-09-13] MEDS: FERROUS GLUCONATE 324 MG TABLET PO SCH (08:29)
[2018-09-13] MEDS: FAMOTIDINE 20 MG TABLET PO SCH (08:30)
[2018-09-13] MEDS: LISINOPRIL 5 MG TABLET PO SCH (08:30)
[2018-09-13] MEDS: OSELTAMIVIR PHOSPHATE 75 MG CAPSULE PO SCH (08:30)
[2018-09-13] MEDS ORDERED: Sertraline Tab 50 MG TAB PO SCH (09:00)
[2018-09-13] MEDS ORDERED: Oxybutynin ER Tab 5 MG TAB PO SCH (09:00)
[2018-09-13 13:45] VITALS: BP 120/66; TEMP 97.1; O2SAT 91
--- NOTE | 2018-09-13 15:03 | DCSUMMARY ---
Hospitalization Summary Admit Date: 09/12/2018 Discharge Date: 09/13/18 Primary Diagnosis:: influenza A Hospital Course: This is a very pleasant 62-year-old female with a history of a mechanical heart valve amongst other medical issues, who came in with an elevated INR, nausea and vomiting, and was found to have influenza A. Her nausea and vomiting resolved and she was able to tolerate a diet prior to discharge. She had recently been diagnosed with sinusitis and her INR was quite elevated, on antibiotics, but those were discontinued prior to discharge. She had sinus tenderness and headaches. In the setting of influenza I think this is influenza related. She had no fevers while here. She was started on Tamiflu. She tolerated that well. INR is decreased today from admission, and she has no active signs of bleeding. I am going to go ahead and discharge her at her elevated INR, and have her hold off on Coumadin until her INR is back in the therapeutic range. We both agreed that avoiding vitamin K would be best given the tenuous aspects of managing Coumadin in the setting of her mechanical valve for stroke prevention. She states that vitamin K has really caused issues with her in the past. She can check her INR tomorrow in the clinic and she has a home monitoring device as well. Today, no complaints of chest pain, shortness breath, nausea or vomiting. The patient would like to go home if possible. Assessment and Plan: 1. As per discharge assessments noted 2. Disposition: Patient is discharged home. 3. Condition on discharge, stable and improved. 4. Diet: regular diet 5. Activities: resume normal activities 6. Follow-Up: 1. Dr. Hester one week 7. Medications at the Time of Discharge: Home Medications Medication Instructions Recorded Confirmed Type Osteo Biflex 1 ea PO BID 11/04/09 09/12/18 History Multivitamins W-Minerals/Lut 1 ea PO BID 02/07/12 09/12/18 History [Centrum Silver Tablet] Pyridoxine HCl [Vitamin B-6] 1 tab PO QD #30 06/27/16 09/12/18 History aluminum hydrox-magnesium carb 95 15 ml PO TID-QID PRN 06/13/17 09/12/18 History mg-358 mg/15 mL oral suspension ferrous gluconate 324 mg (38 mg 324 mg PO BID #180 tab 06/13/17 09/12/18 Rx iron) tablet loperamide 2 mg capsule 2 mg PO Q2-4H PRN 06/13/17 09/12/18 History potassium citrate ER 10 mEq (1,080 10 meq PO QDAY PRN #90 tab 06/13/17 09/12/18 Rx mg) tablet,extended release ranitidine 150 mg tablet 150 mg PO BID tab 03/31/18 09/12/18 History clobetasol 0.05 % topical ointment 1 applic TOPICAL QHS #15 g 04/12/18 09/12/18 Rx calcium carbonate-vitamin D3 600 600 mg PO BID cap 07/18/18 09/12/18 History mg (1,500 mg)-400 unit capsule lactobacillus combination no.8 3 3,000 mmu cells PO BID cap 07/18/18 09/12/18 History billion cell capsule magnesium 30 mg tablet 400 mg PO DAILY PRN tab 07/18/18 09/12/18 History estradiol 10 mcg vaginal tablet 10 mcg VAGINAL 2XW #24 tab 07/20/18 09/12/18 Rx furosemide 20 mg tablet 20 mg PO QDAY PRN #90 tab 07/20/18 09/12/18 Rx lisinopril 5 mg tablet 5 mg PO QDAY #90 tab 07/20/18 09/12/18 Rx oxybutynin chloride ER 10 mg 10 mg PO QDAY #90 tab 07/20/18 09/12/18 Rx tablet,extended release 24 hr sertraline 100 mg tablet 100 mg PO QDAY #90 tab 07/20/18 09/12/18 Rx warfarin 4 mg tablet 6 mg PO see directions #135 tab 07/20/18 09/12/18 Rx fluticasone 50 mcg/actuation nasal See Rx Instructions .ROUTE 08/06/18 09/12/18 Rx spray,suspension .COMPLEX #16 gram Ondansetron Odt [Zofran Odt] 8 mg PO Q6H PRN #10 tab.rapdis 09/10/18 09/12/18 Rx Folic Acid 1 tab PO DAILY 09/13/18 09/13/18 History Oseltamivir Phosphate [Tamiflu] 75 mg PO BID #9 cap 09/13/18 Rx Exam - Vitals Vital Signs: Vital Signs Temperature 97.1 F Temperature Source Temporal Artery Scan Pulse Rate [Pulse Oximeter] 73 Pulse Rate 83 Respiratory Rate 16 Blood Pressure [Right Arm] 120/66 Blood Pressure [Left Arm] 132/98 Blood Pressure 148/86 Pulse Ox 91 Oxygen Delivery Method Room Air Height 5 ft 3.5 in Weight 203 lb 6.4 oz - General General Appearance: No Acute Distress, Cooperative - Head Head Exam: Normal Inspection, Normocephalic, Atraumatic - Eye Eye Exam: POSITIVE: No Scleral Icterus - ENT ENT Exam: POSITIVE: Mucous Membranes Moist - Respiratory Respiratory Exam: POSITIVE: Clear to Auscultation - Bilaterally, Breathing Non Labored - Cardiovascular Cardiovascular Exam: POSITIVE: RRR, No Murmur, No Gallops, No Rubs, Clicks - GI/Abdominal GI/Abdominal Exam: POSITIVE: Normal Bowel Sounds, Non Tender, Non Distended, Soft - Extremities Extremities Exam: POSITIVE: No Clubbing Present, No Edema Present, No Cyanosis Present - Neurological Neurological Exam: POSITIVE: Alert, Oriented x 3, No Facial Droop, Speech Intact / Clear, Moves All Extremities Equally - Psychiatric Psychiatric Exam: POSITIVE: Normal Affect, Normal Mood Data Peritnent Studies: Laboratory Results 09/13/18 05:45 PT 69.6 H INR 7.96 H* 09/12/18 09/12/18 09/12/18 09:55 09:55 09:55 WBC 4.03 L Hgb 14.6 Hct 43.6 Plt Count 244 INR 10.12 H* D VBG pH VBG pCO2 VBG HCO3 VBG Base Excess Sodium 137 Potassium 4.0 Chloride 102 Carbon Dioxide 26 Anion Gap 9 BUN 11 Creatinine 0.8 Estimated GFR > 60 BUN/Creatinine Ratio 13.75 Glucose 105 Calculated Osmolality 282.0 Lactic Acid Calcium 9.8 Magnesium 1.6 Total Bilirubin 0.8 D AST 124 H ALT 94 H D Alkaline Phosphatase 86 Troponin I C-Reactive Protein 0.7 NT-Pro-B Natriuret Pep 542 H Total Protein 7.9 Albumin 4.8 Globulin 3.1 Albumin/Globulin Ratio 1.50 09/12/18 09/12/18 09/12/18 09:55 09:55 10:05 WBC Hgb Hct Plt Count INR VBG pH 7.43 H VBG pCO2 40 L VBG HCO3 27 H VBG Base Excess 3 H Sodium Potassium Chloride Carbon Dioxide Anion Gap BUN Creatinine Estimated GFR BUN/Creatinine Ratio Glucose Calculated Osmolality Lactic Acid 1.2 Calcium Magnesium Total Bilirubin AST ALT Alkaline Phosphatase Troponin I < 0.012 C-Reactive Protein NT-Pro-B Natriuret Pep Total Protein Albumin Globulin Albumin/Globulin Ratio Procedures: [address] [place] [address] PH: DD: [phone] FAX: [phone] ~DIAGNOSTIC IMAGING REPORT~ Patient: Divya Gutierrez : 1955 Sex: F Age: 62 Exam Name: CT Head WO Contrast Exam Date: 09/12/18 Report # : [id number] CPT Code: 90922 EMR/MR #: [id number] Ordering: MAYCOL WEN Admiting: Primary: Behzad Hseter MD Attending: Signed CT Head WO Contrast,09/12/2018 10:23 AM: Clinical History: Headache and elevated INR. Previous Exam: May 17, 2014 Findings: Multiple helically acquired CT images are obtained through the brain without contrast, and demonstrate normal, symmetric ventricles and other CSF containing spaces. There is no mass, hemorrhage or midline shift. The surrounding soft tissue and osseous structures are unremarkable. The intraorbital structures and paranasal sinuses are normal. Impression: No acute intracranial pathology. Dictated By: 09/12/18 1111 ZO SALDANA MD. Signed By: 09/12/18 1118 ZO SALDANA MD. [address] [facility] [place] [address] PH: DD: [phone] FAX: [phone] ~DIAGNOSTIC IMAGING REPORT~ Patient: Divya Gutierrez : 1955 Sex: F Age: 62 Exam Name: XR CXR 1VW Exam Date: 09/12/18 Report # : [id number] CPT Code: 92966 EMR/MR #: [id number] Ordering: MAYCOL WEN Admiting: Primary: Behzad Hester MD Attending: Signed XR CXR 1VW,09/12/2018 9:51 AM: Clinical History: Cough and shortness of breath Previous Exam: None at this facility. Findings: A single frontal radiograph of the chest is obtained, and demonstrates clear lungs. The cardiomediastinum is unremarkable. There is dextroscoliosis of the midthoracic spine. There is no infiltrate nor effusion. Impression: Normal chest. Dictated By: 09/12/18 1031 ZO SALDANA MD. Signed By: 09/12/18 1036 ZO SALDANA MD. Patient Problems - Patient Problem List (1) H/O mechanical aortic valve replacement Current Visit: Yes Status: Acute Code(s): Z95.2 - Presence of prosthetic heart valve Category: Surgical (2) Elevated INR Current Visit: Yes Status: Acute Code(s): R79.1 - Abnormal coagulation profile Category: Medical (3) Influenza Current Visit: Yes Status: Acute Code(s): J11.1 - Influenza due to unidentified influenza virus with other respiratory manifestations Category: Medical
== END 2018-09-13 15:59 | disposition home or self-care (01) ==
LOC: ER 09:32 → MED/SURG 09:32
PROVIDERS: ADMIT Internal Medicine; ATTEND Internal Medicine